=== PATIENT | female | born 1960 | race African-American/Black ===

== ENCOUNTER 2019-09-16 13:07 | Emergency (ER) | payer OTHER, SELFPAY ==
[2019-09-16 13:27] VITALS: BP 143/84; PULSE 79; RESP 16; TEMP 37.8; O2SAT 99
[2019-09-16 13:28] VITALS: BP 140/83; BP 142/71
--- NOTE | 2019-09-16 13:36 | ED.DIZZY ---
HPI - Dizziness General Chief Complaint: Dizziness Stated Complaint: Light-headed Time Seen by Provider: 09/16/19 13:37 Source: patient Mode of arrival: ambulatory Limitations: no limitations History of Present Illness HPI Narrative: Donnie Ely is a 59 yo female with complaints of dizziness, has fever, feels off -denies respiratory symptoms or sore throat, started Friday Related Data Allergies Allergy/AdvReac Type Severity Reaction Status Date / Time No Known Allergies Allergy Verified 09/16/19 13:32 Review of Systems Review of Systems: Narrative: CONSTITUTIONAL: Has fever, chills, sweats. EYES: Denies visual changes, redness, discharge. ENT: Denies rhinorrhea, congestion, sore throat, otalgia. CARDIOVASCULAR: Denies chest pain, palpitations, edema. RESPIRATORY: Denies dyspnea, wheezing, cough GASTROINTESTINAL: Denies abdominal pain, nausea, vomiting, diarrhea. GENITOURINARY: Denies dysuria, hematuria, abnormal discharge SKIN: Denies rash or itching. NEUROLOGIC: Denies numbness, or focal weakness. Has dizziness PSYCHIATRIC: Denies anxiety or depression. [facility] Family History Family History Other No active medical problems Social History Social History Smoking status: Never smoker Substance use: never Gender identity (if verbalized by the patient): Female Comments At time of signature, I agree with nursing past medical, surgical, social and family history. There is no relevant family history pertinent to the presenting complaint. Exam Narrative: Exam Narrative: GENERAL: This is a well-nourished, well-developed patient, in mild distress. HEAD: normocephalic, atraumatic. EYES: Sclera clear/white. Vision is grossly intact. EARS: External ears normal, Hearing grossly intact. NOSE: External nose normal with no obvious nasal discharge, nares without redness, no rhinorrhea. THROAT: Mucous membranes moist, posterior pharynx mild erythema. NECK: Neck supple, non-tender CARDIOVASCULAR: Regular rate and rhythm without murmurs, gallops, or rubs. RESPIRATORY: Clear to auscultation. Breath sounds equal bilaterally. No wheezes, rales, or rhonchi. GASTROINTESTINAL: Abdomen soft, SKIN: warm, intact with no suspicious lesions or rash, good texture and turgor. NEURO: awake, alert, and oriented to person, place and time. There were no obvious focal neurologic abnormalities. Steady gait EXTREMITIES: Normal range of motion. No edema. BACK: Nontender without deformity . Course Course Emergency Course: Flu swab done +A tamiflu (and option for xofluza) given along with codeine cough and mucinex, and ibuprofen Vital Signs Vital signs: Vital Signs Temperature 100.1 F H 09/16/19 13:27 Pulse Rate 79 09/16/19 13:27 Respiratory Rate 16 09/16/19 13:27 Blood Pressure 143/84 H 09/16/19 13:27 Pulse Oximetry 99 09/16/19 13:27 Temperature 100.1 F H 09/16/19 13:27 Pulse Rate 79 09/16/19 13:27 Respiratory Rate 16 09/16/19 13:27 Blood Pressure 142/71 H 09/16/19 13:28 Pulse Oximetry 99 09/16/19 13:27 MDM - Dizziness Differential Diagnosis Differential diagnosis: Likely benign paroxysmal positional vertigo, orthostatic hypotension and other Lab Data Labs: Influenza A Screen Positive Reference Range: Negative Influenza B Screen Negative Reference Range: Negative Discharge Plan Discharge Clinical Impression: Influenza A Patient Disposition: Home, Self-Care Condition: Stable Instructions: Influenza (DC) Prescriptions: New oseltamivir 75 mg capsule 75 mg PO Q12H 5 Days Qty: 10 RF: 0 codeine-guaifenesin 10-100 mg/5 mL liquid 10 ml PO Q4-6H PRN (Reason: cough) Qty: 180 RF: 0 pseudoephedrine-guaifenesin [Mucinex D] 60-600 mg tablet extended release 12 hr 1 tablet PO BID PRN (Reason: cold
== END 2019-09-16 14:30 | disposition home or self-care (01) ==
PROVIDERS: Emergency Provider Nurse Practitioner
DX: J10.1 Influenza due to other identified influenza virus with other respiratory manifestations (principal)
CPT/HCPCS: 87804; 99203; G0463

== ENCOUNTER 2024-07-28 11:02 | Emergency (ER) | payer OTHER, SELFPAY ==
[2024-07-28 11:16] VITALS: BP 153/92; PULSE 78; RESP 16; TEMP 36.6; O2SAT 99
--- NOTE | 2024-07-28 11:20 | ED_ITS ---
HPI - General Adult General Chief complaint: Nausea/Vomiting/Diarrhea Stated complaint: light headed,vomiting Time Seen by Provider: 07/28/24 11:22 Source: patient Mode of arrival: ambulatory Limitations: no limitations History of Present Illness HPI narrative: 64-year-old female presents concern for 1 day history of feeling dizzy and lightheaded when she stands up. She does not feel that way when she is sitting and that she feels normal a few seconds after standing. She denies body aches, chills, fever, sweats, runny nose, stuffy nose, cough, ear pain. She denies chest pain or shortness of breath. She denies headache, vision changes. She denies swelling in any extremity. She denies history of high blood pressure. She reports she did have symptoms like this before when she had COVID. MD complaint: Lightheaded Related Data Allergies Allergy/AdvReac Type Severity Reaction Status Date / Time No Known Allergies Allergy Verified 07/28/24 11:22 Review of Systems Review of Systems: CONSTITUTIONAL: Denies malaise, chills, sweats, or fever. EYES: Denies visual changes ENT: Denies rhinorrhea, congestion, sinus pain, otalgia or sore throat. CARDIOVASCULAR: Denies chest pain, palpitations, or edema. RESPIRATORY: Denies cough or dyspnea. GASTROINTESTINAL: Denies abdominal pain, vomiting, diarrhea, bloody, or mucous stools. Reports 1 episode of nausea yesterday MUSCULOSKELETAL: Denies myalgia. NEUROLOGIC: Denies numbness, weakness, or headache. Reports temporary lightheadedness when she stands up All systems reviewed & are unremarkable except as noted in HPI and below PMFSH Family History Family History Other No active medical problems Social History Social History Smoking status: Never smoker Substance use: never Gender identity (if verbalized by the patient): Female Comments At time of signature, agree with nursing past medical, surgical, social and family history. There is no relevant family history pertinent to the presenting complaint Exam Narrative: GENERAL: Well-appearing, well-nourished, and in no acute distress. HEAD: Normocephalic, atraumatic. EYES: PERRLA, sclera clear, and EOMI. No nystagmus. ENT: Nares clear, turbinates pink, no rhinorrhea or epistaxis. Mucous membranes moist. TM pearly ambriz with sharp light reflex bilaterally; no tragal tenderness. Oropharynx without erythema or lesions. Tonsils not enlarged and without exudate. NECK: Supple. No lymphadenopathy. No jugular venous distension, thyromegaly, or carotid bruits. Carotids were easily palpable bilaterally. CHEST: No respiratory distress. Clear to auscultation. No bony deformities, no asymmetry. Speaks in full sentences. HEART: Regular rate and rhythm. No murmur heard. Normal peripheral pulses. ABDOMEN: Soft, nontender, nondistended, normal active bowel sounds, no palpable masses. EXTREMITIES: Normal range of motion. No edema. Normal strength and sensation. SKIN: Warm, dry, no visible rash. NEURO: Alert and oriented x3. No focal deficits. Cranial nerves II through XII grossly intact PSYCH: Normal mood and affect Course Course Emergency Course: Orthostatic blood pressure unremarkable Patient is aware of diagnosis, understands and agrees to treatment plan. A nticipatory guidance given. Patient agrees to follow-up as directed and is aware of reasons to seek care at the emergency department. Portions of this record may have been created with voice recognition software Level of Care: Express Care Visit Vital Signs Vital signs: Vital Signs Temperature 97.9 F 07/28/24 11:16 Pulse Rate 78 07/28/24 11:16 Respiratory Rate 16 07/28/24 11:16 Blood Pressure 153/92 H 07/28/24 11:16 Pulse Oximetry 99 07/28/24 11:16 Oxygen Delivery Room Air 07/28/24 11:16 Temperature 97.9 F 07/28/24 11:16 Pulse Rate 78 07/28/24 11:16 Respiratory Rate 16 07/28/24 11:16 Blood Pressure 153/92 H 07/28/24 11:16 Pulse Oximetry 99 07/28/24 11:16 Oxygen Delivery Room Air 07/28/24 11:16 Reviewed. Medical Decision Making MDM Narrative Medical decision making narrative: The patient was evaluated by myself in the emergency department. History is obtained from patient who is an independent historian and physical exam was performed.? Available medical records were reviewed at this time. ? Exam findings and imaging show no acute concerns or changes; patient is non- toxic appearing and is in no distress. Patient is appropriate for outpatient treatment and follow-up. ? I have evaluated and discussed social determinants of health with the patient that could potentially impact subsequent diagnosis and treatment plans. ? Differential diagnosis and treatment plan were discussed with the patient. Patient agrees with discussion and after shared medical decision making agrees with plan of care. All questions were answered to the patient's satisfaction. Vital Signs Vital Signs: Vital Signs Temperature 97.9 F 07/28/24 11:16 Pulse Rate 78 07/28/24 11:16 Respiratory Rate 16 07/28/24 11:16 Blood Pressure 153/92 H 07/28/24 11:16 Pulse Oximetry 99 07/28/24 11:16 Oxygen Delivery Room Air 07/28/24 11:16 Temperature 97.9 F 07/28/24 11:16 Pulse Rate 78 07/28/24 11:16 Respiratory Rate 16 07/28/24 11:16 Blood Pressure 153/92 H 07/28/24 11:16 Pulse Oximetry 99 07/28/24 11:16 Oxygen Delivery Room Air 07/28/24 11:16 Critical Care Time Critical Care Time Critical Care Time: No Discharge Plan Discharge Clinical Impression: Feeling light headed Patient Disposition: Home, Self-Care Condition: Stable Instructions: Lightheadedness (ED) Additional Instructions: Having an established primary care provider is essential to your health. Please call [phone] for help finding a primary care provider in your area that accepts your insurance. Your rapid flu and COVID tests are negative 1) Please follow-up with your primary care doctor in the next 1-2 days. 2) If you have any worsening of symptoms or any other urgent concerns please go to the ER. 3) Please make sure you are staying hydrated. 4) Please read and follow information included in discharge instructions. Patient Language: Taiwanese Follow-up/Referrals: PHYSICIAN,IN SERVICE EDUCATOR [Primary Care Provider] - Stand Alone Forms: Work/School Release IP Time of Disposition: 11:52
[2024-07-28 11:40] VITALS: BP 154/78
[2024-07-28 11:41] VITALS: BP 153/90; BP 157/85
[2024-07-28 11:55] LABS: EDCOVIDSCREEN Negative (Negative); EDINFLUASCREEN Negative (Negative); EDINFLUBSCREEN Negative (Negative)
== END 2024-07-28 11:53 | disposition home or self-care (01) ==
PROVIDERS: Emergency Provider Nurse Practitioner
DX: R42 Dizziness and giddiness (principal); Z20.822 Contact with and (suspected) exposure to COVID-19
CPT/HCPCS: 87426; 87804; 99212; G0463